=== PATIENT | male | born 1955 | race Caucasian/White ===

== ENCOUNTER 2016-05-30 06:01 | Day surgery (SDC) | payer MEDICARE, OTHER ==
[~2016-05-30] VITALS: Ht 165.1 cm; Wt 85.0 kg
[~2016-05-30 06:01] MED LIST: ACET-2047 PO; ASPI-664 PO; CARV3.1260 PO; FOL8 PO; HYDR-906 PO; MAGN400O4 PO; MELA1TAB12 PO; NEPH PO; OMEP40CA6 PO; PIOG15TA12 PO; RPGL.5T PO; TRAZ50TA18 PO
[2016-05-30 06:51] VITALS: Ht 165.1 cm; Wt 85.0 kg
[2016-05-30 06:52] VITALS: BP 133/63; PULSE 58; RESP 11
--- NOTE | 2016-05-30 07:05 | RADRPT ---
PROCEDURE: XR Chest. CLINICAL INDICATION: Preop TECHNIQUE: An AP view of the chest was obtained. COMPARISON: Chest x-ray dated 04/23/2016 FINDINGS: There is a left subclavian dual chamber pacemaker AICD. There is prominence of the interstitial and central pulmonary vascular markings moderate right pleu ral effusion. No focal airspace opacification or pneumothorax is seen. The cardiomediastinal silh ouette is mildly enlarged . Calcifications are seen within the aortic arch. The osseous structures demonstrate senescent changes. IMPRESSION: 1. Findings suggestive of pulmonary vascular congestion with moderate right pleural effusion. No s ignificant interval change. 2. Mild cardiomegaly and aortic atherosclerosis. 3. Left subclavian pacemaker AICD. RPTAT: HH .Lily Fuentes MD, Date Time Electronically viewed and signed by .Lily Fuentes MD, on 05/30/2016 07:04 .G/
[2016-05-30 07:18] LABS: ALBUMIN 4.3 g/dl (3.3-4.9); INR 1.29; PROTIME 16.2 Sec (12.2-14.2); PT RATIO 1.3
[2016-05-30 07:19] LABS: PARTIAL THROMBOPLASTIN TIME 34.6 Sec (25.0-35.0); POTASSIUM 4.7 mmol/L (3.5-5.1)
[2016-05-30 07:20] LABS: BASOPHILS % 0.6 % (0.0-2.0); EOSINOPHILS # 0.1 10^3/ul (0.0-0.5); EOSINOPHILS % 1.9 % (0.0-7.0); HEMATOCRIT 35.6 % (42.0-52.0); HEMOGLOBIN 11.7 g/dl (14.0-18.0); LYMPHOCYTES # 0.6 10^3/ul (0.8-2.9); MEAN CORPUSCULAR HEMOGLOBIN 31.7 pg (29.0-33.0); MEAN CORPUSCULAR HGB CONC 32.9 g/dl (32.0-37.0); MEAN CORPUSCULAR VOLUME 96.5 fl (82.0-101.0); MEAN PLATELET VOLUME 7.9 fl (7.4-10.4); MONOCYTE # 0.5 10^3/ul (0.3-0.9); MONOCYTES % 11.5 % (0.0-11.0); NEUTROPHIL # 3.5 10^3/ul (1.6-7.5); PLATELET COUNT 148 10^3/UL (140-440); RED BLOOD COUNT 3.68 10^6/ul (4.70-6.10); RED CELL DISTRIBUTION WIDTH 14.8 % (11.5-14.5); UNCORRECTED WBC 4.8 10^3/ul (4.8-10.8); WHITE BLOOD COUNT 4.8 10^3/ul (4.8-10.8)
[2016-05-30 07:21] LABS: ALBUMIN/GLOBULIN RATIO 1.04; BILIRUBIN,INDIRECT 0.1 mg/dl (0-1.1); BILIRUBIN,TOTAL 0.1 mg/dl (0.2-1.3); TOTAL PROTEIN 8.4 g/dl (6.1-8.1)
[2016-05-30 07:31] LABS: CONDITION 1; LH ANALYZER COMMENTS 1
[2016-05-30 07:33] LABS: CALCIUM 8.7 mg/dl (8.4-10.2); CREATININE 4.85 mg/dl (0.61-1.24)
[2016-05-30] MEDS ORDERED: SEVE0.8P PO (07:57)
[2016-05-30] MEDS ORDERED: SOD CHLORIDE 0.9% 500 ML ONE (12:12)
[2016-05-30] MEDS ORDERED: LIDOCAINE 1% (MDV) 20 ML INJ ONE (12:12)
[2016-05-30] MEDS ORDERED: IODIXANOL LOCM 50 ML BTL ONE (12:12)
--- NOTE | 2016-05-30 12:17 | OPR ---
DATE OF OPERATION: PREOPERATIVE DIAGNOSIS: Dysfunctional left upper extremity arteriovenous fistula. POSTOPERATIVE DIAGNOSIS: Dysfunctional left upper extremity arteriovenous fistula PROCEDURE: 1. Left upper extremity fistulogram. 2. Central venogram. 3. Interpretation and supervision of central venogram. 4. Catheter introduction into the fistula. 5. Left upper extremity arteriogram. 6. Interpretation and supervision of the arteriogram. 7. Conscious sedation for 1 hour. CONSENT: The risks, benefits, complications, and alternative therapies were explained to the patien t and family, and consent obtained. OPERATIVE TECHNIQUE: The patient was placed in the supine position, prepped and draped in the usual sterile fashion. 1% lidocaine was used throughout the operation for local anesthesia. Access was gained. A left arm AV fistulogram was then done using 10 mL of contrast. Interpretation and supervision of the fistulogram revealed complete obstruction of the fistula, which was in a cep halic vein fistula, at the level of the mid arm. We could not pass the wire through this obstructio n using multiple different wires. A central venogram was done which showed a patent basilic vein, w hich was about 5 mm in size, into the axillary vein which was patent and a subclavian vein which was patent. Arteriogram was also done which showed patent arterial inflow. No evidence of any obstruc tion. This patient would be needing a left basilic vein transposition AV fistula. It will be discu ssed with the referring physicians and the family. All questions were answered. Dictated By: ELIZABETH JAVED/SADIQ Conf#: [id number] DID#: [id number]
[2016-05-30 12:30] VITALS: BP 157/74; PULSE 67; RESP 16
--- NOTE | 2016-06-02 14:01 | RADRPT ---
Vent Rate: 58 bpm RR Interval: 0 msec [place] Interval: 236 msec QRS Duration: 118 msec QT Interval: 468 msec QTC Interval: 459 msec P-R-T [place]: 38 - 82 - 0 degrees Sinus bradycardia with 1st degree AV block Incomplete left bundle branch block ST amp; T wave abnormality, consider inferolateral ischemia Abnormal ECG Electronically Signed By: Trey Winkler [id number]
== END 2016-05-30 13:32 | disposition home or self-care (01) ==
LOC: SDS 06:01
PROVIDERS: ATTEND Thoracic Surgery (Cardiothoracic Vascular Surgery)
DX: T82.898A Other specified complication of vascular prosthetic devices, implants and grafts, initial encounter (principal); Y84.1 Kidney dialysis as the cause of abnormal reaction of the patient, or of later complication, without mention of misadventure at the time of the procedure; Y92.89 Other specified places as the place of occurrence of the external cause; I12.0 Hypertensive chronic kidney disease with stage 5 chronic kidney disease or end stage renal disease; N18.6 End stage renal disease
CPT/HCPCS: 36901; 71010; 80053; 85025; 85610; 85730; 93005; C1769; C1887; J1644; J7040; Q9967

== ENCOUNTER 2016-11-21 07:48 | Day surgery (SDC) | payer MEDICARE, OTHER ==
[~2016-11-21] VITALS: Ht 165.1 cm; Wt 60.0 kg
[~2016-11-21 07:48] MED LIST changes: +SEVE0.8P PO
[2016-11-21] MEDS ORDERED: PANT40TA3 PO (08:49)
[2016-11-21] MEDS ORDERED: AMIN30LI PO (08:52)
[2016-11-21] MEDS ORDERED: FOLI-49 PO (08:53)
[2016-11-21 10:00] VITALS: BP 129/73; PULSE 62; RESP 19
[2016-11-21 10:14] LABS: ADD SCAN DIFF NO
[2016-11-21 10:17] VITALS: Ht 165.1 cm; Wt 60.0 kg
[2016-11-21 10:17] LABS: BASOPHIL # 0.1 10^3/ul (0.0-0.1); BASOPHILS % 1.4 % (0.0-2.0); EOSINOPHILS # 0.1 10^3/ul (0.0-0.5); EOSINOPHILS % 1.4 % (0.0-7.0); HEMATOCRIT 36.5 % (42.0-52.0); HEMOGLOBIN 10.9 g/dl (14.0-18.0); LYMPHOCYTES # 0.7 10^3/ul (0.8-2.9); LYMPHOCYTES % 19.1 % (15.0-51.0); MEAN CORPUSCULAR HGB CONC 29.9 g/dl (32.0-37.0); MEAN CORPUSCULAR VOLUME 103.7 fl (82.0-101.0); MEAN PLATELET VOLUME 10.2 fl (7.4-10.4); MONOCYTE # 0.6 10^3/ul (0.3-0.9); MONOCYTES % 15.2 % (0.0-11.0); NEUTROPHIL # 2.3 10^3/ul (1.6-7.5); NEUTROPHILS % 62.6 % (39.0-77.0); PLATELET COUNT 155 10^3/UL (140-415); RED BLOOD COUNT 3.52 10^6/ul (4.70-6.10); RED CELL DISTRIBUTION WIDTH 14.2 % (11.5-14.5); WHITE BLOOD COUNT 3.6 10^3/ul (4.8-10.8)
[2016-11-21] MEDS ORDERED: DEXTROSE 50% 50 ML SYRINGE IV ONE (10:20)
[2016-11-21] MEDS ORDERED: DEXTROSE 50% 50 ML SYRINGE ONE (10:22)
[2016-11-21 10:34] LABS: ALBUMIN 3.9 g/dl (3.3-4.9); BILIRUBIN,INDIRECT 0.2 mg/dl (0-1.1); BILIRUBIN,TOTAL 0.2 mg/dl (0.2-1.3); INR 1.46; PROTIME 17.8 Sec (12.2-14.2); PT RATIO 1.4; TOTAL PROTEIN 7.8 g/dl (6.1-8.1)
[2016-11-21 10:38] LABS: CALCIUM 9.1 mg/dl (8.4-10.2); CREATININE 3.96 mg/dl (0.61-1.24); PARTIAL THROMBOPLASTIN TIME 36.3 Sec (25.0-35.0); POTASSIUM 5.5 mmol/L (3.5-5.1)
--- NOTE | 2016-11-21 10:43 | RADRPT ---
PROCEDURE: XR Chest. CLINICAL INDICATION: Preoperative TECHNIQUE: Single frontal chest x-ray. COMPARISON: 05/30/2016 FINDINGS: There is a dual chamber cardiac pacer / AICD overlying the left chest. . Cardiomegaly with mild hil ar vascular congestion is present. There is a moderate right pleural effusion with right basilar co nsolidation unchanged. The left lung is clear.. Calcific atherosclerosis of the aorta is present. . The osseous structures are intact. IMPRESSION: Moderate right pleural effusion with right basilar consolidation unchanged. Cardiomegaly with hilar vascular congestion. Left-sided AICD in place.. RPTAT: RR .Marcus Baker MD, MD Date Time Electronically viewed and signed by .Marcus Baker MD, MD on 11/21/2016 10:43 .L/
[2016-11-21 14:04] VITALS: BP 135/73; PULSE 64; RESP 16
--- NOTE | 2016-11-21 14:12 | OPR ---
Date/Time of Note Date/Time of Note DATE: 11/21/16 TIME: 14:08 Operative Report Procedure Date: Nov 21, 2016 Preoperative Diagnosis End-stage renal disease Postoperative Diagnosis End-stage renal disease Operation Performed Left ARM shuntogram Central venogram Interpretation supervision of the central venogram Interpretation supervision of the shuntogram Fluoroscopy Moderate sedation for 1 hour Surgeon: ELIZABETH BRYANT MD Anesthesia: MAC Estimated Blood Loss: minimal Specimens None Grafts/Implants None Tubes/Drains None Pt Condition Post Procedure: critical Disposition: PACU Indications Dysfunctional left upper extremity AV fistula Operative\Procedure Findings Patient was taken to Metallurgical Engineering Technician prepped and draped in usual sterile fashion timeout was called and I started Access was gained in the left fistula in the arm guidewire was advanced through without any difficulty subcutaneous tissues dilated it appeared to be cephalic vein fistula which was very large Angiocath was advanced over a guidewire and angiogram and fistulogram was done Central venogram was done Interpretation supervision of the fistulogram and venogram The fistula was completely occluded with the cephalic vein completely occluded in the mid arm all the way up to the chest There was a pacemaker maker involved The basilic vein opacified late retrograde into a open axillary vein open subclavian vein open superior vena cava The catheter was removed the entrance site was closed using a single 3-0 Vicryl suture in interrupted fashion ELIZABETH BRYANT MD Nov 21, 2016 14:12
--- NOTE | 2016-11-21 21:06 | RADRPT ---
Vent Rate: 72 bpm RR Interval: 0 msec RI Interval: 220 msec QRS Duration: 110 msec QT Interval: 432 msec QTC Interval: 473 msec P-R-T [place]: 48 - 69 - 0 degrees Sinus rhythm with sinus arrhythmia with 1st degree AV block Incomplete left bundle branch block T wave abnormality, consider inferolateral ischemia Prolonged QT Abnormal ECG Electronically Signed By: Marco Nagy [id number]
== END 2016-11-21 14:24 | disposition home or self-care (01) ==
LOC: SDS 07:48
PROVIDERS: ATTEND Thoracic Surgery (Cardiothoracic Vascular Surgery)
DX: T82.858A Stenosis of other vascular prosthetic devices, implants and grafts, initial encounter (principal); N18.6 End stage renal disease; Z99.2 Dependence on renal dialysis; Y83.2 Surgical operation with anastomosis, bypass or graft as the cause of abnormal reaction of the patient, or of later complication, without mention of misadventure at the time of the procedure
CPT/HCPCS: 36901; 71010; 80053; 82962; 85025; 85610; 85730; 93005; C1769; C1887

== ENCOUNTER 2016-12-17 10:05 | Day surgery (SDC) | payer MEDICARE, OTHER ==
[~2016-12-17] VITALS: Ht 165.1 cm; Wt 70.0 kg
[~2016-12-17 10:05] MED LIST changes: +AMIN30LI PO; -FOL8 PO; +FOLI-49 PO; -OMEP40CA6 PO; +PANT40TA3 PO; -TRAZ50TA18 PO
[2016-12-17] MEDS ORDERED: FOLI1CAP PO (11:18)
[2016-12-17] MEDS ORDERED: DOCU-144 PO (11:23)
[2016-12-17] MEDS ORDERED: NOVO3I SC (11:27)
[2016-12-17] MEDS ORDERED: REPA1TAB14 PO (11:29)
[2016-12-17 11:59] VITALS: BP 133/64; PULSE 58; RESP 18; Ht 165.1 cm; Wt 70.0 kg
[2016-12-17 12:13] LABS: ABNORMAL IP MESSAGE 1; BASOPHIL # 0.1 10^3/ul (0.0-0.1); BASOPHILS % 1.7 % (0.0-2.0); EOSINOPHILS # 0.1 10^3/ul (0.0-0.5); EOSINOPHILS % 2.1 % (0.0-7.0); HEMATOCRIT 35.9 % (42.0-52.0); HEMOGLOBIN 11.3 g/dl (14.0-18.0); LYMPHOCYTES # 0.6 10^3/ul (0.8-2.9); LYMPHOCYTES % 19.7 % (15.0-51.0); MEAN CORPUSCULAR HEMOGLOBIN 31.1 pg (29.0-33.0); MEAN CORPUSCULAR HGB CONC 31.5 g/dl (32.0-37.0); MEAN CORPUSCULAR VOLUME 98.9 fl (82.0-101.0); MEAN PLATELET VOLUME 10.3 fl (7.4-10.4); MONOCYTE # 0.4 10^3/ul (0.3-0.9); MONOCYTES % 13.8 % (0.0-11.0); NEUTROPHILS % 62.7 % (39.0-77.0); PLATELET COUNT 130 10^3/UL (140-415); RED BLOOD COUNT 3.63 10^6/ul (4.70-6.10); WHITE BLOOD COUNT 2.9 10^3/ul (4.8-10.8)
[2016-12-17] MEDS ORDERED: DEXTROSE 50% 50 ML SYRINGE IV ONE (12:30)
[2016-12-17 12:36] LABS: INR 1.44; PROTIME 17.6 Sec (12.2-14.2); PT RATIO 1.4
[2016-12-17 12:52] LABS: PARTIAL THROMBOPLASTIN TIME 37.3 Sec (25.0-35.0)
[2016-12-17 13:06] LABS: ALBUMIN/GLOBULIN RATIO 1.14; BILIRUBIN,INDIRECT 0.2 mg/dl (0-1.1); BILIRUBIN,TOTAL 0.2 mg/dl (0.2-1.3); TOTAL PROTEIN 7.5 g/dl (6.1-8.1)
[2016-12-17 13:08] LABS: CALCIUM 8.5 mg/dl (8.4-10.2)
[2016-12-17 13:13] LABS: POTASSIUM 5.8 mmol/L (3.5-5.1)
[2016-12-17 13:14] LABS: CREATININE 6.85 mg/dl (0.61-1.24)
[2016-12-17 13:37] LABS: INR 1.49; PROTIME 18.1 Sec (12.2-14.2); PT RATIO 1.4
[2016-12-17 13:57] LABS: PARTIAL THROMBOPLASTIN TIME 37.7 Sec (25.0-35.0)
[2016-12-17 14:10] VITALS: BP 138/64; PULSE 58; RESP 16
--- NOTE | 2016-12-20 13:38 | RADRPT ---
Vent Rate: 61 bpm RR Interval: 0 msec [place] Interval: 228 msec QRS Duration: 110 msec QT Interval: 452 msec QTC Interval: 455 msec P-R-T [place]: 31 - 49 - 0 degrees Sinus rhythm with sinus arrhythmia with 1st degree AV block Incomplete left bundle branch block T wave abnormality, consider inferolateral ischemia Abnormal ECG Electronically Signed By: Moris Simms [id number]
== END 2016-12-17 14:20 | disposition home or self-care (01) ==
LOC: UNDOADMIN 10:05 → SDS 10:05 → REC 10:05 → EDSTATUS 12:30 → UNDODISIN 14:20 → SDS 14:20
PROVIDERS: ATTEND Thoracic Surgery (Cardiothoracic Vascular Surgery)
DX: N18.6 End stage renal disease (principal); I12.0 Hypertensive chronic kidney disease with stage 5 chronic kidney disease or end stage renal disease; Z53.9 Procedure and treatment not carried out, unspecified reason
CPT/HCPCS: 80053; 82962; 85025; 85610; 85730; 93005

== ENCOUNTER 2017-02-18 08:18 | Inpatient (IN) | payer MEDICARE, OTHER ==
[2017-02-17 16:37] VITALS: BMI 22.7
[~2017-02-18] VITALS: Ht 165.1 cm; Wt 61.2 kg
[2017-02-18] VITALS (36 sets, daily range): BP systolic 65–164; BP diastolic 50–94; PULSE 42–88; RESP 9–25; Ht 165.1 cm; Wt 61.2 kg
[~2017-02-18 08:18] MED LIST changes: -CARV3.1260 PO; +DOCU-144 PO; +FOLI1CAP PO; -MELA1TAB12 PO; -NEPH PO; +NOVO3I SC; +REPA1TAB14 PO; -RPGL.5T PO
[2017-02-18] MEDS ORDERED: CARV3.12 PO (09:03)
[2017-02-18] MEDS ORDERED: ERGO500037 PO (09:04)
[2017-02-18] MEDS ORDERED: POLY15DR25 BOTH EYES (09:05)
[2017-02-18] MEDS ORDERED: DEXTROSE 50% 50 ML SYRINGE ONE ×2 (09:05→10:55)
[2017-02-18 09:49] LABS: ABNORMAL IP MESSAGE 1; BASOPHIL # 0.1 10^3/ul (0.0-0.1); BASOPHILS % 2.3 % (0.0-2.0); EOSINOPHILS # 0.1 10^3/ul (0.0-0.5); EOSINOPHILS % 2.3 % (0.0-7.0); HEMATOCRIT 34.4 % (42.0-52.0); HEMOGLOBIN 10.1 g/dl (14.0-18.0); LYMPHOCYTES # 0.6 10^3/ul (0.8-2.9); LYMPHOCYTES % 21.5 % (15.0-51.0); MEAN CORPUSCULAR HEMOGLOBIN 29.4 pg (29.0-33.0); MEAN CORPUSCULAR HGB CONC 29.4 g/dl (32.0-37.0); MEAN CORPUSCULAR VOLUME 100.3 fl (82.0-101.0); MEAN PLATELET VOLUME 10.5 fl (7.4-10.4); MONOCYTE # 0.5 10^3/ul (0.3-0.9); MONOCYTES % 17.3 % (0.0-11.0); NEUTROPHIL # 1.5 10^3/ul (1.6-7.5); NEUTROPHILS % 56.6 % (39.0-77.0); PLATELET COUNT 113 10^3/UL (140-415); POSITIVE DIFF @See below; RED BLOOD COUNT 3.43 10^6/ul (4.70-6.10); RED CELL DISTRIBUTION WIDTH 14.4 % (11.5-14.5)
[2017-02-18 09:51] LABS: INR 1.44; PROTIME 17.6 Sec (12.2-14.2); PT RATIO 1.4
[2017-02-18 09:57] LABS: HOLD TRANSMISSIONS 1; WHITE BLOOD COUNT 2.6 10^3/ul (4.8-10.8)
[2017-02-18 10:05] LABS: CALCIUM 8.6 mg/dl (8.4-10.2); CREATININE 5.96 mg/dl (0.61-1.24); POTASSIUM 5.1 mmol/L (3.5-5.1)
[2017-02-18 10:42] LABS: PARTIAL THROMBOPLASTIN TIME 39.3 Sec (25.0-35.0)
[2017-02-18] MEDS ORDERED: PROPOFOL 100 ML ONE (10:54)
[2017-02-18] MEDS ORDERED: NEOSTIGMINE 3 MG/3 ML SYRINGE ONE (10:54)
[2017-02-18] MEDS ORDERED: GLYCOPYRROLATE 0.4 MG INJ ONE (10:54)
[2017-02-18] MEDS ORDERED: ROCURONIUM 50 MG INJ ONE (10:54)
[2017-02-18] MEDS ORDERED: LIDOCAINE 2% (SDV) 5 ML INJ ONE (10:54)
[2017-02-18] MEDS ORDERED: ONDANSETRON 4 MG INJ ONE (10:55)
[2017-02-18] MEDS ORDERED: FENTAnyl 50 MCG/ML VIAL ONE (10:55)
[2017-02-18] MEDS ORDERED: MIDAZOLAM 1 MG/ML 2 ML INJ ONE (10:55)
[2017-02-18] MEDS ORDERED: EPHEDrine SULFATE 50 MG/5 ML SYG ONE (10:59)
[2017-02-18] MEDS ORDERED: GLUCOSE GEL 15 GRAM TUBE PO PRN ×2 (11:00)
[2017-02-18] MEDS ORDERED: DEXTROSE 50% 50 ML SYRINGE IV PRN ×2 (11:00)
[2017-02-18] MEDS ORDERED: GLUCOSE GEL 15 GRAM TUBE BUCCAL PRN (11:00)
[2017-02-18] MEDS ORDERED: GLUCAGON 1 MG INJ IM PRN (11:00)
[2017-02-18] MEDS ORDERED: HEPARIN 1000 UNITS/ML 10 ML INJ ONE (11:49)
[2017-02-18] MEDS ORDERED: GELATIN SIZE 100 SPONGE ONE (11:49)
[2017-02-18] MEDS ORDERED: LIDOCAINE 1% (MPF) 30 ML INJ ONE (11:49)
[2017-02-18] MEDS ORDERED: THROMBIN 5000 UNIT VIAL ONE (11:49)
[2017-02-18] MEDS ORDERED: CEFAZOLIN 1 GM INJ ONE (11:51)
[2017-02-18] MEDS ORDERED: LABETALOL HCL 20MG INJ IV PRN (13:30)
[2017-02-18] MEDS ORDERED: ONDANSETRON 4 MG INJ IV PRN (13:30)
[2017-02-18] MEDS ORDERED: hydrALAzine 20 MG INJ IV PRN (13:30)
[2017-02-18] MEDS ORDERED: FENTAnyl 50 MCG/ML VIAL IV PRN ×2 (13:30)
[2017-02-18] MEDS ORDERED: EPHEDrine SULFATE 50 MG/5 ML SYG IV PRN (13:30)
--- NOTE | 2017-02-18 13:30 | OPR ---
Date/Time of Note Date/Time of Note DATE: 02/18/17 TIME: 13:29 Operative Report Procedure Date: Feb 18, 2017 Preoperative Diagnosis Dysfuntional LUE AVF Postoperative Diagnosis same Operation/Procedure Performed Revesion LUE AVF Surgeon see signature line Internet Webmaster none Anesthesia Type: general Estimated Blood Loss: minimal Transfusion none Specimen none Grafts/Implants none Tubes/Drains n Complications none Indications Dictated Procedure Description Dictated ELIZABETH BRYANT MD Feb 18, 2017 13:30
--- NOTE | 2017-02-18 15:55 | EN ---
Date/Time of Note Date/Time of Note DATE: 02/18/17 TIME: 15:47 Event Note Medicine Medicine Event Note Rapid Response note STRETCH BOX TENDER called at ~330pm, I responded within 2 minutes STRETCH BOX TENDER called for decreased LOC. 61 yo M with ESRD on HD here for outpatient AVF placement which he underwent earlier today. Vitals initially with SBP 70s repeat vitals prior to fluids HR 87, BP 129/84 sat 94% on 10L supplemental O2. lungs clear no mrg abd soft no rashes no edema Without intervention pt's level of alertness improved to the point that he was communicating in Filipino with a family member Last HD was yesterday (pt is MWF) Pt told then nurse he was having chest pain, and EKG was obtained rate 83, TWIs in v4, v5, v6. No evidence of ST segment elevation I advised that surgeon be notified. No compelling indication for imaging at this time. If chest pain persists, consider obtaining cardiac biomarkers NANDA CARVALHO MD Feb 18, 2017 15:55
--- NOTE | 2017-02-18 16:09 | HP ---
Date/Time of Note Date/Time of Note DATE: 02/18/17 TIME: 16:06 Assessment/Plan VTE Prophylaxis VTE Prophylaxis Intervention: SCD's Lines/Catheters IV Catheter Type (from Nrsg): Saline Lock Assessment/Plan Assessment/Plan 61 yo M with ESRD on HD admitted for hypotension following an AVF revision. BP improved without intervention PLAN hold bb cont other home meds tele monitoring if additional CP, will obtain cardiac biomarkers HPI/ROS Admit Date/Time Admit Date/Time Hx of Present Illness CC: hypotension post operatively HPI 61 yo M with ESRD on HD, CAD, h/o cardiac arrest, h/o ICD placement admitted for hypotension following revision of malfunctioning AVF today. Per surgical documentation, no complications during procedure. CLAIMS SUPERVISOR called ~330pm for pt in same day surgery with decreased level of responsiveness. SBP initially in the 80s, improved to 140s without intervention. Pt a little agitated and vaguely remarked on chest discomfort thus surgeon recommended overnight monitoring. PMHx: ESRD on HD DM2, HTN h/o cardiac arrest h/o ICD placement HTN blindness PMH/Family/Social Past Medical History ESRD on HD, h/o ICD placement for cardiac arrest, DM2, HTN Social History lives in the community Smoking Status: Never smoker Exam/Review of Systems Vital Signs Vitals Vital Signs Date Time Temp Pulse Resp B/P Pulse Ox O2 Delivery O2 Flow Rate FiO2 02/18/17 15:03 78 11 146/86 99 Room Air 02/18/17 09:19 98.6 Intake and Output 02/17/17 02/17/17 02/18/17 15:00 23:00 07:00 Intake Total 100 ml Output Total 2 ml Balance 98 ml Exam Exam agitated MMM no mrg lungs clear LUE AVF site wrapped no rashes no edema pre op labs reviewed. accucheck from CLAIMS SUPERVISOR 90s EKG reviewed Labs Result Diagram: 02/18/1790702/18/17907 Medications Medications Current Medications Miscellaneous Information 1 ea NOTE XX ; Start 02/18/17 at 11:00 Glucose (Glutose) 15 gm Q15M PRN PO DECREASED GLUCOSE; Start 02/18/17 at 11:00 Glucose (Glutose) 22.5 gm Q15M PRN PO DECREASED GLUCOSE; Start 02/18/17 at 11: 00 Dextrose (D50w Syringe) 25 ml Q15M PRN IV DECREASED GLUCOSE; Start 02/18/17 at 11:00 Dextrose (D50w Syringe) 50 ml Q15M PRN IV DECREASED GLUCOSE; Start 02/18/17 at 11:00 Glucagon (Glucagen) 1 mg Q15M PRN IM DECREASED GLUCOSE; Start 02/18/17 at 11: 00 Glucose (Glutose) 15 gm Q15M PRN BUCCAL DECREASED GLUCOSE; Start 02/18/17 at 11:00 Acetaminophen (Tylenol Tab) 650 mg Q6H PRN PO PAIN AND OR ELEVATED TEMP; Start 02/18/17 at 16:30; Status UNV Aspirin (Halfprin) 81 mg DAILY PO ; Start 02/19/17 at 09:00; Status UNV Docusate Sodium (Colace) 100 mg DAILY PRN PO CONSTIPATION; Start 02/18/17 at 16:30; Status UNV Folic Acid (Folic Acid) 1 mg DAILY PO ; Start 02/19/17 at 09:00; Status UNV Pantoprazole (Protonix Tab) 40 mg DAILY PO ; Start 02/19/17 at 09:00; Status UNV Eye Lubricant (Artificial Tears Oph) 1 drop TID BOTH EYES ; Start 02/18/17 at 21:00; Status UNV Miscellaneous Information 30 ml TID PO ; Start 02/18/17 at 21:00; Status UNV Miscellaneous Information 1 mg DAILY PO ; Start 02/19/17 at 09:00; Status UNV NANDA CARVALHO MD Feb 18, 2017 16:09
[2017-02-18] MEDS ORDERED: NACL 0.9% 3 ML SYG IV SCH (16:30)
[2017-02-18] MEDS ORDERED: DOCUSATE SODIUM 100 MG CAP PO PRN (16:30)
[2017-02-18] MEDS ORDERED: NITROGLYCERIN (SL) 0.4 MG TAB SL ONE (17:30)
--- NOTE | 2017-02-18 19:41 | RADRPT ---
PROCEDURE: XR Chest. CLINICAL INDICATION: Shortness of breath. TECHNIQUE: Single frontal chest x-ray. COMPARISON: 05/30/2016 FINDINGS: Left subclavian biventricular pacemaker with AICD is present. Heart is enlarged.. There is diffuse interstitial prominence compatible with CHF. There are right greater than left pleural effusions wit h associated basilar atelectasis versus infiltrate.. There is no pneumothorax. The osseous structu res are unremarkable. IMPRESSION: Cardiomegaly. CHF. Right greater than left pleural effusions with associated basilar atelectasis poly radha infiltrate. RPTAT: [facility]VK .Shaan Kapadia MD, MD Date Time Electronically viewed and signed by .Shaan Kapadia MD, on 02/18/2017 19:41 .K/
[2017-02-18] MEDS: ARTIFICIAL TEARS 15 ML OPH BOTH EYES SCH (21:00)
[2017-02-18] MEDS ORDERED: NON-FORMULARY/PATIENT OWN MED (Amino Acids/Protein Hydrolys (Pro-Stat Liquid) 30 ML) PO SCH (21:00)
[2017-02-19] VITALS (19 sets, daily range): BP systolic 103–142; BP diastolic 53–70; PULSE 66–76; RESP 20–22
[2017-02-19] MEDS: ACCU-CHEK XX SCH (02:00)
--- NOTE | 2017-02-19 02:13 | OPR ---
DATE OF OPERATION: PREOPERATIVE DIAGNOSIS: Dysfunctional left upper extremity arteriovenous fistula. POSTOPERATIVE DIAGNOSIS: Dysfunctional left upper extremity arteriovenous fistula. 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 SURGEON: Elizabeth Gunter MD ANESTHESIA: General. INFORMED CONSENT: Risks, benefits, complications, alternative therapies, high-risk nature of the op eration fully explained to the patient and the family, consent obtained. OPERATIVE TECHNIQUE: The patient was placed in supine position, prepped and draped in usual sterile fashion. Time-out was called. There were 2 aneurysmal formations in the left arm AV fistula. Incision was taken down to these ane urysms, which were then dissected. They were oversewn partially using 4-0 Prolene in continuous sut ure technique. The wound was irrigated and closed in 2 layers of 2-0 Vicryl suture for the deep and interrupted 4-0 Prolene suture for the skin. Patient tolerated procedure well. Dictated By: ELIZABETH GUNTER MD FM/SADIQ Conf#: [id number] DID#: [id number] CC: NANDA CARVALHO MD;*EndCC*
[2017-02-19] MEDS: SEVELAMER CARBONATE 0.8 GM PKT PO SCH ×3 (08:00→18:21)
[2017-02-19] MEDS: ASPIRIN (EC) 81 MG TAB PO SCH (08:11)
[2017-02-19] MEDS: FOLIC ACID 1 MG TAB PO SCH (08:11)
[2017-02-19] MEDS: PANTOPRAZOLE (EC) 40 MG TAB PO SCH (08:11)
[2017-02-19] MEDS: ACETAMINOPHEN 325 MG TAB PO PRN ×2 (08:11→19:11)
[2017-02-19 08:30] LABS: ABNORMAL IP MESSAGE 1; BASOPHILS % 0.9 % (0.0-2.0); EOSINOPHILS % 0.9 % (0.0-7.0); HEMATOCRIT 33.7 % (42.0-52.0); HEMOGLOBIN 9.6 g/dl (14.0-18.0); LYMPHOCYTES # 0.4 10^3/ul (0.8-2.9); LYMPHOCYTES % 12.4 % (15.0-51.0); MEAN CORPUSCULAR HEMOGLOBIN 29.4 pg (29.0-33.0); MEAN CORPUSCULAR HGB CONC 28.5 g/dl (32.0-37.0); MEAN CORPUSCULAR VOLUME 103.1 fl (82.0-101.0); MEAN PLATELET VOLUME 10.8 fl (7.4-10.4); MONOCYTE # 0.5 10^3/ul (0.3-0.9); MONOCYTES % 13.3 % (0.0-11.0); NEUTROPHIL # 2.5 10^3/ul (1.6-7.5); NEUTROPHILS % 72.5 % (39.0-77.0); PLATELET COUNT 116 10^3/UL (140-415); POSITIVE DIFF @See below; RED BLOOD COUNT 3.27 10^6/ul (4.70-6.10); RED CELL DISTRIBUTION WIDTH 14.4 % (11.5-14.5); WHITE BLOOD COUNT 3.4 10^3/ul (4.8-10.8)
[2017-02-19] MEDS: INSULIN ASPART [NOVOLOG] 3 ML PEN SC SCH ×6 (08:44→21:00)
[2017-02-19] MEDS ORDERED: NON-FORMULARY/PATIENT OWN MED (Folic Acid/Vitamin B Comp W-C (Nephrocaps Capsule) 1 MG) PO SCH (09:00)
[2017-02-19 09:18] LABS: ALBUMIN 3.7 g/dl (3.3-4.9); ALBUMIN/GLOBULIN RATIO 1.15; BILIRUBIN,INDIRECT 0.1 mg/dl (0-1.1); BILIRUBIN,TOTAL 0.1 mg/dl (0.2-1.3); CREATININE 6.55 mg/dl (0.61-1.24); POTASSIUM 5.7 mmol/L (3.5-5.1); TOTAL PROTEIN 6.9 g/dl (6.1-8.1)
[2017-02-19] MEDS: VITAMIN B COMPLEX/VIT C CAP PO SCH (11:07)
[2017-02-19] MEDS: ARTIFICIAL TEARS 15 ML OPH BOTH EYES SCH ×3 (11:07→21:24)
--- NOTE | 2017-02-19 12:28 | PN ---
Date/Time of Note Date/Time of Note DATE: 02/19/17 TIME: 12:26 Assessment/Plan VTE Prophylaxis VTE Prophylaxis Intervention: SCD's Lines/Catheters IV Catheter Type (from Nrs): Saline Lock Assessment/Plan Assessment/Plan 61 yo M with ESRD on HD admitted for hypotension following an AVF revision. BP improved without intervention. Now with volume overload PLAN hold bb cont other home meds tele monitoring troponins x 3 without marked elevation renal to see today for volume removal. If breathing returns to normal will hopefully dc in AM Subjective 24 Hr Interval Summary Free Text/Dictation Pt with progressive SOB overnight, imaging with volume overload Exam/Review of Systems Vital Signs Vitals Vital Signs Date Time Temp Pulse Resp B/P Pulse Ox O2 Delivery O2 Flow Rate FiO2 02/19/17 12:00 68 02/19/17 11:18 98.2 20 134/70 96 02/19/17 07:53 Nasal Cannula 3.0 Intake and Output 02/18/17 02/18/17 02/19/17 15:00 23:00 07:00 Intake Total 200 ml Balance 200 ml Exam dyspneic no mrg poor breath sounds abd soft no rashes Results Result Diagram: 02/19/17 0725 02/19/17 0725 Results 24 hrs Laboratory Tests Test 02/18/17 13:01 02/18/17 15:39 02/18/17 17:23 02/18/17 20:43 Bedside Glucose 115 96 97 Troponin I < 0.012 Test 02/18/17 23:14 02/19/17 02:26 02/19/17 07:25 02/19/17 08:42 Troponin I 0.016 0.019 Bedside Glucose 74 79 White Blood Count 3.4 #L Red Blood Count 3.27 L Hemoglobin 9.6 L Hematocrit 33.7 L Mean Corpuscular Volume 103.1 H Mean Corpuscular Hemoglobin 29.4 Mean Corpuscular Hemoglobin Concent 28.5 L Red Cell Distribution Width 14.4 Platelet Count 116 L Mean Platelet Volume 10.8 H Neutrophils % 72.5 Lymphocytes % 12.4 L Monocytes % 13.3 H Eosinophils % 0.9 Basophils % 0.9 Nucleated Red Blood Cells % 0.0 Neutrophils # 2.5 Lymphocytes # 0.4 L Monocytes # 0.5 Eosinophils # 0.0 Basophils # 0.0 Nucleated Red Blood Cells # 0.0 Sodium Level 143 Potassium Level 5.7 H Chloride Level 105 Carbon Dioxide Level 23 Anion Gap 21 H Blood Urea Nitrogen 53 H Creatinine 6.55 H Glucose Level 77 Calcium Level 8.0 L Total Bilirubin 0.1 L Direct Bilirubin 0.00 Indirect Bilirubin 0.1 Aspartate Amino Transf (AST/SGOT) 15 Alanine Aminotransferase (ALT/SGPT) 23 Alkaline Phosphatase 202 H Total Protein 6.9 Albumin 3.7 Globulin 3.20 Albumin/Globulin Ratio 1.15 Test 02/19/17 12:06 Bedside Glucose 85 Medications Medications Current Medications Miscellaneous Information 1 ea NOTE XX ; Start 02/18/17 at 11:00 Glucose (Glutose) 15 gm Q15M PRN PO DECREASED GLUCOSE; Start 02/18/17 at 11:00 Glucose (Glutose) 22.5 gm Q15M PRN PO DECREASED GLUCOSE; Start 02/18/17 at 11: 00 Dextrose (D50w Syringe) 25 ml Q15M PRN IV DECREASED GLUCOSE; Start 02/18/17 at 11:00 Dextrose (D50w Syringe) 50 ml Q15M PRN IV DECREASED GLUCOSE; Start 02/18/17 at 11:00 Glucagon (Glucagen) 1 mg Q15M PRN IM DECREASED GLUCOSE; Start 02/18/17 at 11: 00 Glucose (Glutose) 15 gm Q15M PRN BUCCAL DECREASED GLUCOSE; Start 02/18/17 at 11:00 Acetaminophen (Tylenol Tab) 650 mg Q6H PRN PO PAIN AND OR ELEVATED TEMP Last administered on 02/19/17 08:11; Admin Dose 650 MG; Start 02/18/17 at 16:30 Aspirin (Halfprin) 81 mg DAILY PO Last administered on 02/19/17 08:11; Admin Dose 81 MG; Start 02/19/17 at 09:00 Docusate Sodium (Colace) 100 mg DAILY PRN PO CONSTIPATION; Start 02/18/17 at 16:30 Folic Acid (Folic Acid) 1 mg DAILY PO Last administered on 02/19/17 08:11; Admin Dose 1 MG; Start 02/19/17 at 09:00 Pantoprazole (Protonix Tab) 40 mg DAILY PO Last administered on 02/19/17 08: 11; Admin Dose 40 MG; Start 02/19/17 at 09:00 Eye Lubricant (Artificial Tears Oph) 1 drop TID BOTH EYES Last administered on 02/19/17 11:07; Admin Dose 1 DROP; Start 02/18/17 at 21:00 Diagnostic Test (Pha) (Accu-Chek) 1 ea 02 XX ; Start 02/19/17 at 02:00 Vitamin B Complex/ Vitamin C (Berocca) 1 cap DAILY PO Last administered on 11:07; Admin Dose 1 CAP; Start 02/19/17 at 11:00 NANDA CARVALHO MD Feb 19, 2017 12:28
--- NOTE | 2017-02-19 22:47 | EN ---
Date/Time of Note Date/Time of Note DATE: 02/19/17 TIME: 22:44 Event Note Medicine Medicine Event Note Was called by the RN who was asked by the patients Ingrid to discuss his code status. Patient's sister was also present. They both are in agreement to have the patient's code status changed to DNR. They are understandable to the criteria of DNR. RN was present during this discussion as well. His code status will be changed to DNR. JENNY VIDAL Feb 19, 2017 22:47
[2017-02-19] MEDS ORDERED: LORAZEPAM 2 MG INJ IV ONE ×2 (23:30)
[2017-02-20] VITALS (21 sets, daily range): BP systolic 102–144; BP diastolic 55–78; PULSE 57–84; RESP 18–22
[2017-02-20] MEDS: ACCU-CHEK XX SCH (02:00)
--- NOTE | 2017-02-20 05:53 | CONS ---
DATE OF ADMISSION: 02/18/2017 DATE OF CONSULTATION: 02/19/2017 NEPHROLOGY CONSULTATION REASON FOR CONSULTATION: End-stage renal disease. PHYSICIAN REQUESTING CONSULTATION: ____ HISTORY OF PRESENT ILLNESS: This is a 61-year-old male with a past medical history of end-stage susana al disease, on dialysis Friday, Friday and Friday, who presented to [facility] after patient underwent an AV fistula revision. The patient apparently was noted to be hypotensive after the revision. The patient had rapid response and was admitted to telemetry. While on telemet ry, the patient was noted to be tachypneic with shortness of breath. A chest x-ray was obtained tex t showed findings of CHF with pleural effusions, right greater than left. There have been no report s of hemoptysis, hematemesis or hematochezia. PAST MEDICAL HISTORY: History of end-stage renal disease, history of anemia, history of hypertensio n, history of CHF, history of coronary artery disease. PAST SURGICAL HISTORY: Status post left AV fistula. FAMILY HISTORY: Noncontributory. SOCIAL HISTORY: Does not drink, smoke or do drugs. MEDICATIONS: The patient's medications have been reviewed. ALLERGIES: NO KNOWN DRUG ALLERGIES. REVIEW OF SYSTEMS: A 14-point review of systems was conducted. Pertinent positives stated in HPI, otherwise negative. PHYSICAL EXAMINATION: VITAL SIGNS: Blood pressure is 146/86, respirations 11, pulse 78, temperature 98.6. HEENT: Head is normocephalic. NECK: Supple. HEART: Regular rate. LUNGS: Show diminished breath sounds at the base. ABDOMEN: Soft, nontender to palpation, without rebound or guarding. EXTREMITIES: Negative for clubbing, cyanosis. No edema. DERMATOLOGIC: No rashes. MUSCULOSKELETAL: No joint effusions. NEUROLOGIC: No change in exam. No focal deficits. LABORATORY DATA: Shows white count 3.4, hemoglobin 9.6, hematocrit , platelet count is 116. S odium 143, potassium 5.7, BUN 53, creatinine 6.55. IMAGING STUDIES: As stated in HPI. ASSESSMENT AND PLAN: This is a 61-year-old male who presents with: 1. End-stage renal disease. The patient is status post revision of AV fistula access. Plan is for hemodialysis for 3 hours on 2 K bath, calcium 2.5, ultrafiltrate as tolerated. 2. Hypokalemia. The patient will be dialyzed on 2 potassium bath. Continue low-potassium diet. 4. Volume overload. The patient has no new pulmonary congestion, pleural effusion. Continue ultra filtration dialysis. 5. Bilateral pleural effusions secondary to congestive heart failure and end-stage renal disease. Continue ultrafiltration dialysis. Consider thoracentesis. 6. Anemia. Monitor H and H levels. Will give Epogen as needed. 7. Mineral bone disorder. Monitor calcium and phosphorus levels. 8. Left AV fistula. Patient is status post revision. Discussed the case with alexis Mercado's AV fistula is appropriate for use. Thank you, ____ for this interesting consult. It will be a pleasure to follow the patient with you throughout the hospital course. Dictated By: MARILU JORDAN/SADIQ Conf#: [id number] DID#: [id number]
[2017-02-20] MEDS: INSULIN ASPART [NOVOLOG] 3 ML PEN SC SCH ×3 (08:00→18:05)
[2017-02-20 08:04] LABS: ABNORMAL IP MESSAGE 1; BASOPHILS % 1.1 % (0.0-2.0); EOSINOPHILS % 1.1 % (0.0-7.0); HEMATOCRIT 34.1 % (42.0-52.0); HEMOGLOBIN 9.4 g/dl (14.0-18.0); LYMPHOCYTES # 0.4 10^3/ul (0.8-2.9); LYMPHOCYTES % 12.1 % (15.0-51.0); MEAN CORPUSCULAR HEMOGLOBIN 28.9 pg (29.0-33.0); MEAN CORPUSCULAR HGB CONC 27.6 g/dl (32.0-37.0); MEAN CORPUSCULAR VOLUME 104.9 fl (82.0-101.0); MEAN PLATELET VOLUME 10.5 fl (7.4-10.4); MONOCYTE # 0.6 10^3/ul (0.3-0.9); MONOCYTES % 16.4 % (0.0-11.0); NEUTROPHIL # 2.4 10^3/ul (1.6-7.5); PLATELET COUNT 119 10^3/UL (140-415); POSITIVE DIFF @See below; RED BLOOD COUNT 3.25 10^6/ul (4.70-6.10); RED CELL DISTRIBUTION WIDTH 14.4 % (11.5-14.5); WHITE BLOOD COUNT 3.5 10^3/ul (4.8-10.8)
[2017-02-20 08:35] LABS: CREATININE 4.96 mg/dl (0.61-1.24); MAGNESIUM 1.9 mg/dl (1.7-2.5); PHOSPHORUS 5.7 mg/dl (2.5-4.9); POTASSIUM 4.6 mmol/L (3.5-5.1)
[2017-02-20] MEDS: VITAMIN B COMPLEX/VIT C CAP PO SCH (09:00)
[2017-02-20] MEDS: ARTIFICIAL TEARS 15 ML OPH BOTH EYES SCH ×2 (09:03→12:16)
[2017-02-20] MEDS: PANTOPRAZOLE (EC) 40 MG TAB PO SCH (09:04)
[2017-02-20] MEDS: FOLIC ACID 1 MG TAB PO SCH (09:04)
[2017-02-20] MEDS: ASPIRIN (EC) 81 MG TAB PO SCH (09:04)
[2017-02-20] MEDS: SEVELAMER CARBONATE 0.8 GM PKT PO SCH ×3 (09:04→18:07)
--- NOTE | 2017-02-20 11:07 | PN ---
DATE: 02/20/2017 SUBJECTIVE: The patient had emergent hemodialysis yesterday after Elbert catheter was placed, 2 li ters removed. The patient remains confused, altered and on face mask. Plan for dialysis again this morning. No other events noted. OBJECTIVE: VITAL SIGNS: Blood pressure is 119/58, temperature 97.5, pulse 69, respiration 18. HEENT: Head is normocephalic. NECK: Supple. HEART: Regular rate. LUNGS: Show diminished breath sounds at base. ABDOMEN: Soft, nontender to palpation without rebound or guarding. EXTREMITIES: Negative for clubbing, cyanosis, no edema. DERMATOLOGIC: No rashes. MUSCULOSKELETAL: No joint effusions. NEUROLOGIC: No change in exam. MEDICATIONS: The patient's medications have been reviewed. LABORATORY DATA: Currently pending. ASSESSMENT AND PLAN: 1. Endstage renal disease. The patient had hemodialysis yesterday. Plan for dialysis again today. Will dialyze for 3 hours, 2K bath, calcium 2.5, ultrafiltrate as tolerated. 2. Volume overload, congestive heart failure. Continue ultrafiltration dialysis. 3. Hyperkalemia. Continue dialysis on a low potassium bath. 4. Bilateral pleural effusion secondary to congestive heart failure, endstage renal disease. Keanu nue ultrafiltration with dialysis. 5. Anemia. Monitor hemoglobin and hematocrit, will also give Epogen as needed. 6. Mineral bone disorder. 7. Left AV fistula. The patient is status post revision. Unable to cannulate yesterday due to ble eding. We will follow up with Dr. Cisneros. The patient currently has a Elbert catheter in place. Dictated By: MARILU JORDAN/SADIQ Conf#: [id number] DID#: [id number]
--- NOTE | 2017-02-20 14:13 | PN ---
Date/Time of Note Date/Time of Note DATE: 02/20/17 TIME: 14:12 Assessment/Plan VTE Prophylaxis VTE Prophylaxis Intervention: SCD's Lines/Catheters IV Catheter Type (from Nrs): Saline Lock Assessment/Plan Assessment/Plan 61 yo M with ESRD on HD admitted for hypotension following an AVF revision. BP improved without intervention. Now with volume overload PLAN resume bb cont other home meds tele monitoring renal to continue volume removal. cannot discharge until pt closer to euvolemic Subjective 24 Hr Interval Summary Free Text/Dictation Still quite sleepy and requiring supplemental O2 Exam/Review of Systems Vital Signs Vitals Vital Signs Date Time Temp Pulse Resp B/P Pulse Ox O2 Delivery O2 Flow Rate FiO2 02/20/17 12:45 70 02/20/17 12:45 14 02/20/17 12:37 98.1 139/69 97 02/20/17 08:00 Nasal Cannula 2.0 Intake and Output 02/19/17 02/19/17 02/20/17 15:00 23:00 07:00 Intake Total 1200 ml 250 ml Output Total 2500 ml 2000 ml Balance -1300 ml -1750 ml Exam sleeping poor breath sounds abd soft no rashes no edema Results Result Diagram: 02/20/17 0711 02/20/17 0711 Results 24 hrs Laboratory Tests Test 02/19/17 18:15 02/19/17 21:27 02/20/17 07:11 02/20/17 09:02 Bedside Glucose 111 129 80 White Blood Count 3.5 L Red Blood Count 3.25 L Hemoglobin 9.4 L Hematocrit 34.1 L Mean Corpuscular Volume 104.9 H Mean Corpuscular Hemoglobin 28.9 L Mean Corpuscular Hemoglobin Concent 27.6 L Red Cell Distribution Width 14.4 Platelet Count 119 L Mean Platelet Volume 10.5 H Neutrophils % 69.0 Lymphocytes % 12.1 L Monocytes % 16.4 H Eosinophils % 1.1 Basophils % 1.1 Nucleated Red Blood Cells % 0.0 Neutrophils # 2.4 Lymphocytes # 0.4 L Monocytes # 0.6 Eosinophils # 0.0 Basophils # 0.0 Nucleated Red Blood Cells # 0.0 Sodium Level 143 Potassium Level 4.6 Chloride Level 103 Carbon Dioxide Level 27 Anion Gap 18 H Blood Urea Nitrogen 31 #H Creatinine 4.96 #H Glucose Level 83 Calcium Level 8.0 L Phosphorus Level 5.7 H Magnesium Level 1.9 Test 02/20/17 12:13 Bedside Glucose 107 Medications Medications Current Medications Miscellaneous Information 1 ea NOTE XX ; Start 02/18/17 at 11:00 Glucose (Glutose) 15 gm Q15M PRN PO DECREASED GLUCOSE; Start 02/18/17 at 11:00 Glucose (Glutose) 22.5 gm Q15M PRN PO DECREASED GLUCOSE; Start 02/18/17 at 11: 00 Dextrose (D50w Syringe) 25 ml Q15M PRN IV DECREASED GLUCOSE; Start 02/18/17 at 11:00 Dextrose (D50w Syringe) 50 ml Q15M PRN IV DECREASED GLUCOSE; Start 02/18/17 at 11:00 Glucagon (Glucagen) 1 mg Q15M PRN IM DECREASED GLUCOSE; Start 02/18/17 at 11: 00 Glucose (Glutose) 15 gm Q15M PRN BUCCAL DECREASED GLUCOSE; Start 02/18/17 at 11:00 Acetaminophen (Tylenol Tab) 650 mg Q6H PRN PO PAIN AND OR ELEVATED TEMP Last administered on 02/19/17 19:11; Admin Dose 650 MG; Start 02/18/17 at 16:30 Aspirin (Halfprin) 81 mg DAILY PO Last administered on 02/20/17 09:04; Admin Dose 81 MG; Start 02/19/17 at 09:00 Docusate Sodium (Colace) 100 mg DAILY PRN PO CONSTIPATION; Start 02/18/17 at 16:30 Folic Acid (Folic Acid) 1 mg DAILY PO Last administered on 02/20/17 09:04; Admin Dose 1 MG; Start 02/19/17 at 09:00 Pantoprazole (Protonix Tab) 40 mg DAILY PO Last administered on 02/20/17 09: 04; Admin Dose 40 MG; Start 02/19/17 at 09:00 Eye Lubricant (Artificial Tears Oph) 1 drop TID BOTH EYES Last administered on 02/20/17 12:16; Admin Dose 1 DROP; Start 02/18/17 at 21:00 Diagnostic Test (Pha) (Accu-Chek) 1 ea 02 XX ; Start 02/19/17 at 02:00 Vitamin B Complex/ Vitamin C (Berocca) 1 cap DAILY PO Last administered on 09:00; Admin Dose 1 CAP; Start 02/19/17 at 11:00 Influenza Virus Vaccine (Fluzone) 0.5 ml ONCE ONCE IM* ; Start 02/21/17 at 09: 00; Stop 02/21/17 at 09:01 NANDA CARVALHO MD Feb 20, 2017 14:13
--- NOTE | 2017-02-20 18:29 | RADRPT ---
Vent Rate: 83 bpm RR Interval: 0 msec [place] Interval: 198 msec QRS Duration: 112 msec QT Interval: 412 msec QTC Interval: 484 msec P-R-T [place]: 40 - 18 - 169 degrees Normal sinus rhythm Low voltage QRS Incomplete left bundle branch block T wave abnormality, consider lateral ischemia Prolonged QT Abnormal ECG Electronically Signed By: Marco Nagy [id number]
--- NOTE | 2017-02-20 20:54 | EN ---
Date/Time of Note Date/Time of Note DATE: 02/20/17 TIME: 20:34 Event Note Medicine Medicine Event Note Was called to the room by the nurse as patient's blood pressure was not reading on the monitor and patient desaturating in 60s. While on my way to the room, I gave verbal order for 500cc normal saline bolus over the phone and RT was already at the bedside working to titrate the oxygen up. Upon my arrival to the room patient did not appear responsive. BP was not registering on the bed side blood pressure machine. Oxygen saturation was also not registering. Telemetry monitoring was showing no capture at approximately 20:15. Vitals: no measurable values able to be recorded HEENT: right eye fixed, non reactive to light. Left eye cataract/blindness, unable to assess CVS: no heart sounds appreciated lungs: no visible chest rise, no breath sounds able to be appreciated on auscultation. Vascular: no carotid pulse palpable a/p: #1 Arrest: Patient was a DNR and sister was at the bedside. Fluid resuscitation was initially started. Family did not want aggressive measures. Upon my examination it was apparent that the patient had passed. EKG was done at 20:32 which was atrial paced at 50bpm but there was no capture. There was no capture on tele monitoring as well. Patient was pronounced at 20:32 pm. Family aware and primary team was a are. Greater than 30 minutes of critical care time was spend on the care and management of the patient. JENNY VIDAL Feb 20, 2017 20:54
--- NOTE | 2017-02-20 21:05 | EN ---
Date/Time of Note Date/Time of Note DATE: 02/20/17 TIME: 20:54 ER Progress Note Pronouncement Note Patient seen and examined at the bedside. Patient non responsive to verbal stimuli. Patient non responsive to rigorous sternal rub. Right pupil fixed and non reactive to light, left eye cataract/blind. No heart sounds appreciated on auscultation. No breath sounds on auscultation and no visible chest rise. Telemetry monitoring and ekg showing no capture. Patient pronounced at 20:32pm. Family present at the bedside. Primary team aware. JENNY VIDAL Feb 20, 2017 21:05
[2017-02-21] MEDS ORDERED: INFLUENZA VIRUS VACCINE 0.5 ML (DISPENSING) IM* ONE (09:00)
--- NOTE | 2017-02-21 12:37 | DES ---
Date/Time of Note Date/Time of Note DATE: 02/21/17 TIME: 12:31 Discharge/ Summary Admission/Discharge Info Admit Date/Time Feb 20, 2017 at 12:05 Discharge Date/Time Feb 21, 2017 at 02:20 Final Diagnosis hypotension, end stage renal disease Preliminary Cause of hypotension and hypoxemia of unclear etiology Hx of Present Illness CC: hypotension post operatively HPI 61 yo M with ESRD on HD, CAD, h/o cardiac arrest, h/o ICD placement admitted for hypotension following revision of malfunctioning AVF today. Per surgical documentation, no complications during procedure. DIRECTOR CONSTRUCTION SERVICES called ~330pm for pt in same day surgery with decreased level of responsiveness. SBP initially in the 80s, improved to 140s without intervention. Pt a little agitated and vaguely remarked on chest discomfort thus surgeon recommended overnight monitoring. Hospital Course 61 yo M with ESRD on HD admitted for hypotension following an AVF revision. BP improved without intervention. 10.18 noted to have volume overload, pt seen by nephrology and was dialyzed, also dialyzed 10.19. Pt never able to be weaned off oxygen. Suddenly in the evening 10.19 pt had an acute drop in his SO2 and BP , on repeat check (per documentation), pt was found not to have a BP and was pronounced by the software performance engineer. Pt DNR at time of . Family at bedside at time of patient's demise. Of note, I was not able to review telemetry strips from the time period just before patient's passing as they had already been sent to medical records at time of this document creation. Pending Labs/Cultures Laboratory Tests Test 02/20/17 18:06 02/20/17 19:49 Bedside Glucose 92mg/dL (70-220) 96mg/dL (70-220) NANDA CARVALHO MD Feb 21, 2017 12:37
== END 2017-02-21 02:20 | disposition expired | DRG 252 ==
LOC: SDS 08:18 → REC 17:07 → MS4 18:42 → OBSVTOIN 02-20 12:05
PROVIDERS: ADMIT Internal Medicine; ATTEND Internal Medicine
PROC: 05WY07Z Revision of Autologous Tissue Substitute in Upper Vein, Open Approach (ICD-10-PCS; 2017-02-18)
PROC: 03WY07Z Revision of Autologous Tissue Substitute in Upper Artery, Open Approach (ICD-10-PCS; principal; 2017-02-18 10:30)
PROC: 5A1D70Z Performance of Urinary Filtration, Intermittent, Less than 6 Hours Per Day (ICD-10-PCS; 2017-02-19)
DX: T82.590A Other mechanical complication of surgically created arteriovenous fistula, initial encounter (principal); N18.6 End stage renal disease; I13.2 Hypertensive heart and chronic kidney disease with heart failure and with stage 5 chronic kidney disease, or end stage renal disease; N17.9 Acute kidney failure, unspecified; Z86.74 Personal history of sudden cardiac arrest; Z95.810 Presence of automatic (implantable) cardiac defibrillator; I95.81 Postprocedural hypotension; I25.10 Atherosclerotic heart disease of native coronary artery without angina pectoris; Z99.2 Dependence on renal dialysis; E11.9 Type 2 diabetes mellitus without complications; H54.7 Unspecified visual loss; Z66 Do not resuscitate; E87.6 Hypokalemia; I50.9 Heart failure, unspecified; R09.02 Hypoxemia
CPT/HCPCS: 71010; 80048; 80053; 82962; 83036; 83735; 84100; 84484; 85025; 85610; 85730; 90935; 93005; G0378; J0690; J1644; J1815; J2060; J2250; J2405; J2710; J3010